=== PATIENT | male | born 1960 | race Caucasian/White ===

== ENCOUNTER 2018-09-30 00:47 | Emergency (ER) | payer OTHER ==
[2018-09-30 02:23] VITALS: BP 144/76; PULSE 89; TEMP 98.2; BMI 31.6
--- NOTE | 2018-09-30 02:47 | PDOC ---
Attending Attestation - HPI HPI: 09/30/18 03:07 The patient is a 57 year old male with a PMH of aortic valve repair and aneurysm , pre-diabetic who presents with low back pain for the past week. Patient was seen at an urgent care and given hydrocortisone and metaxalone with minimal relief. Patient notes he saw a chiropractor today who recommended he come to the ER for further evaluation and imaging. The patient denies chest pain, shortness of breath, headache and dizziness. Denies fever, chills, nausea, vomit, diarrhea and constipation. Denies dysuria, frequency, urgency and hematuria. Allergies: NKA Past surgical history: None reported. Social history: No reported alcohol, drug, or cigarette use. PCP: Dr. Hernandez - Physicial Exam PE: 09/30/18 03:07 Agrees with resident's exam. <Mere Quevedo - Last Filed: 09/30/18 03:07> - Resident Resident Name: Matias Landon - ED Attending Attestation I have performed the following: I have examined & evaluated the patient, The case was reviewed & discussed with the resident, I agree w/resident's findings & plan - Medical Decision Making 09/30/18 05:12 57-year-old male with twisting injury to the back and X-ray shows no obvious fracture or malalignment It does appear to be decreased disc space between L2 and L3 Patient will be discharged home with recommendations for an outpatient MRI He has verbalized understanding of his instructions for follow-up <Sarah Recinos - Last Filed: 09/30/18 05:14>
[2018-09-30] MEDS ORDERED: DEXAMETHASONE SOD PHOSPHATE 10 MG/1 ML VIAL IM ONE (02:56)
[2018-09-30] MEDS ORDERED: KETOROLAC TROMETHAMINE 60 MG/2 ML VIAL IM ONE (02:56)
[2018-09-30] MEDS ORDERED: LIDOCAINE 5% TOPICAL PATCH TP ONE (02:56)
--- NOTE | 2018-09-30 03:46 | PDOC ---
History of Present Illness - General Chief Complaint: Back Pain Stated Complaint: BACK PAIN Time Seen by Provider: 09/30/18 02:33 History Source: Patient Exam Limitations: No Limitations - History of Present Illness Initial Comments: 09/30/18 03:41 Patient is a 57M with history of aortic regurg s/p aortic valve repair here today complaining of back pain for the last week. Patient states that he was first evaluated in an in [place] where he was diagnosed with sciatica and given hydrocodone and a muscle relaxer. Patient states that the pain started after he got out of bed in a twisting motion. Denies fevers, chills, nausea, vomiting. Denies gait abnormality, foot drop, sensory losses, urinary incontinence/retention, IVDA. Patient state the pain radiates down his left leg. Patient is requesting MRI and x-ray. Past History - Past Medical History Allergies/Adverse Reactions: Allergies Allergy/AdvReac Type Severity Reaction Status Date / Time No Known Allergies Allergy Verified 09/30/18 02:23 Home Medications: Ambulatory Orders Lidocaine 5% Patch [Lidoderm -] 1 patch TP DAILY #7 patch 09/30/18 Methylprednisolone [Medrol Dose Edgar] 4 mg PO ASDIR #21 tablet 09/30/18 - Suicide/Smoking/Psychosocial Hx Smoking History: Never smoked Have you smoked in the past 12 months: No Information on smoking cessation initiated: No Hx Alcohol Use: Yes Drug/Substance Use Hx: No Review of Systems - Review of Systems Able to Perform ROS?: Yes Comments:: 09/30/18 03:43 GENERAL/CONSTITUTIONAL: No fever or chills. No weakness. HEAD, EYES, EARS, NOSE AND THROAT: No change in vision. No sore throat. CARDIOVASCULAR: No chest pain or shortness of breath RESPIRATORY: No cough, wheezing, or hemoptysis. GASTROINTESTINAL: No nausea, vomiting, diarrhea or constipation. GENITOURINARY: No dysuria, frequency, or change in urination. MUSCULOSKELETAL: No joint or muscle swelling or pain. No neck pain +back pain. SKIN: No rash NEUROLOGIC: No headache, vertigo, loss of consciousness, or change in strength/ sensation. HEMATOLOGIC/LYMPHATIC: No anemia, easy bleeding, or history of blood clots. ALLERGIC/IMMUNOLOGIC: No hives or skin allergy. *Physical Exam - Vital Signs Last Vital Signs Temp Pulse Resp BP Pulse Ox 98.2 F 89 19 144/76 97 09/30/18 00:47 09/30/18 00:47 09/30/18 00:47 09/30/18 00:47 09/30/18 00:47 - Physical Exam Comments: 09/30/18 03:44 GENERAL: Awake, alert, and fully oriented, in no acute distress BACK: No midline tenderness, +lower left sided paraspinal tenderness HEAD: No signs of trauma, normocephalic, atraumatic EYES: PERRLA, EOMI, sclera anicteric, conjunctiva clear ENT: Auricles normal inspection, hearing grossly normal, nares patent, oropharynx clear without exudates. Moist mucosa NECK: Normal ROM, supple, no lymphadenopathy, JVD, or masses LUNGS: No distress, speaks full sentences, clear to auscultation bilaterally HEART: Regular rate and rhythm, normal S1 and S2, no murmurs, rubs or gallops, peripheral pulses normal and equal bilaterally. ABDOMEN: Soft, nontender, normoactive bowel sounds. No guarding, no rebound. No masses EXTREMITIES: Normal inspection, Normal range of motion, no edema. No clubbing or cyanosis. NEUROLOGICAL: Cranial nerves II through XII grossly intact. Normal speech, normal gait, no focal sensorimotor deficits, 1+ DTRs bilaterally in legs SKIN: Warm, Dry, normal turgor, no rashes or lesions noted. Moderate Sedation - Procedure Monitoring Vital Signs: Procedure Monitoring Vital Signs Temperature 98.2 F 09/30/18 00:47 Pulse Rate 89 09/30/18 00:47 Respiratory Rate 19 09/30/18 00:47 Blood Pressure 144/76 09/30/18 00:47 O2 Sat by Pulse Oximetry (%) 97 09/30/18 00:47 ED Treatment Course - RADIOLOGY Radiology Studies Ordered: Category Date Time Status SPINE-LUMBAR SACRAL [RAD] Stat Radiology 09/30/18 02:52 Ordered Medical Decision Making - Medical Decision Making 09/30/18 03:45 Patient is 57M with history of aortic valve repair here today complaining of back pain. No red flags on exam. Vitals normal and stable. Will treat with lidocaine patch, toradol, dex. Will dc with instructions to take ibuprofen, lidocaine patches and medrol dose pack. 09/30/18 05:09 X-ray shows decreased space between L2-L3. Pain improved, not resolved, patient asking to go home. Will discharge with instructions to take motrin 600mg, lidocaine patches, and steroids for pain. Patient to follow up with primary care. *DC/Admit/Observation/Transfer Diagnosis at time of Disposition: Back pain - Discharge Dispostion Disposition: HOME Condition at time of disposition: Good Decision to Admit order: No - Prescriptions Prescriptions: Lidocaine 5% Patch [Lidoderm -] 1 patch TP DAILY #7 patch Methylprednisolone [Medrol Dose Edgar] 4 mg PO ASDIR #21 tablet - Referrals Referrals: Radha Hernandez MD [Primary Care Provider] - - Patient Instructions Printed Discharge Instructions: DI for Low Back Pain Additional Instructions: Please follow up with your primary care doctor this week. You may need an MRI for further workup. Please return if you have any new, worsening or concerning symptoms, especially fever, foot drop, leg weakness and increasing pain. Please take motrin 600mg up to 3 times per day for pain in addition to the prescriptions below. - Post Discharge Activity Forms/Work/School Notes: Back to Work
[2018-09-30] MEDS ORDERED: DEXAMETHASONE SOD PHOSPHATE 10 MG/1 ML VIAL ONE (04:51)
[2018-09-30] MEDS ORDERED: KETOROLAC TROMETHAMINE 60 MG/2 ML VIAL ONE (04:51)
[2018-09-30] MEDS ORDERED: LIDOCAINE 5% TOPICAL PATCH ONE (04:51)
[2018-09-30] MEDS ORDERED: LIDOCAINE PATCH REMOVAL MC SCH (22:00)
== END 2018-09-30 05:26 | disposition home or self-care (01) ==
LOC: JER 00:47
PROC: 3E023GC Introduction of Other Therapeutic Substance into Muscle, Percutaneous Approach (ICD-10-PCS; principal; 2018-09-30)
PROC: 3E0233Z Introduction of Anti-inflammatory into Muscle, Percutaneous Approach (ICD-10-PCS; 2018-09-30)
DX: M54.9 Dorsalgia, unspecified (principal)
CPT/HCPCS: 72100-TC-FY; 99281-25; J1100